=== PATIENT | male | born 1945 | race Caucasian/White ===

== ENCOUNTER 2019-03-18 09:23 | Inpatient (IN) | payer OTHER ==
[~2019-03-18] VITALS: Ht 154.9 cm; Wt 63.5 kg
--- NOTE | 2019-03-18 09:44 | NUR ---
PT BIB EMS PERSONNEL WITH ADULT SON FROM HOME,PT HAS TRACHE WITH NRB MASK ON O2 SAT ABOVE 89% AT THIS TIME.AAO,NAD.MONITORS ON.AWAITS er md evaluations/assessments,reevaluations.awake alert calm quiet nad.cooperative.
[2019-03-18 10:56] LABS: CALCIUM 9.1 mg/dL (8.5-10.1); CARBON DIOXIDE 28.4 mmol/L (21-32); CHLORIDE SERUM 107 mmol/L (98-107); CREATININE SERUM 2.2 mg/dL (0.7-1.3); GLUCOSE SERUM 126 mg/dL (74-106); POTASSIUM SERUM 5.4 mmol/L (3.5-5.1); SODIUM SERUM 146 mmol/L (136-145)
[2019-03-18 10:57] LABS: PLATELET COUNT 246 x10^3mcL (130-400)
[2019-03-18 10:59] LABS: BASOPHIL % 0 % (0-2); RED CELL DISTRIBUTION WIDTH 19.3 % (11.5-14.5)
--- NOTE | 2019-03-18 11:09 | NUR ---
RESTING ER # 05 HOB @ 45 DEGREES SR UP,MONITORS ON.BRITTNI [place].ADULT SON BEDSIDE.AWAITS TEST RESULTS,REEVALUATIONS.
[2019-03-18 11:10] LABS: ALBUMIN 2.9 g/dL (3.4-5.0); ALKALINE PHOSPHATASE 71 U/L (46-116); ALT/SGPT 160 U/L (16-63); AST/SGOT 292 U/L (15-37); BILIRUBIN TOTAL 0.66 mg/dL (0.20-1.00); TOTAL PROTEIN, SERUM 7.1 g/dL (6.4-8.2)
[2019-03-18 11:13] LABS: CK-MB 1.8 ng/mL (0-3.6)
--- NOTE | 2019-03-18 11:30 | NUR ---
PURPLE SEPSIS CHECKLIST INITIATED. PT HAS KNOWN INFECTION (CAME IN ON LEVAQUIN) PT MEETS SIRS CRITERIA (HR 96, RR 22 @ 0929) PT MEETS SEVERE SEPSIS (LACTIC ACID 3.8 REPORTED @ 1130) PT DOES NOT MEET SEPTIC SHOCK @ THIS TIME, LACTIC ACID <4 & SBP 92, MAP 66
--- NOTE | 2019-03-18 11:34 | NUR ---
PT O2 SAT IN THE MID 70S. NOTIFIED DR. GERMAN. DR. GERMAN REQUESTED FOR BREATHING TREATMENT. RT NOTIFED AND WILL GIVE BREATHING TREATMENT.
--- NOTE | 2019-03-18 11:40 | NUR ---
RAHEEM GEORGE AT BEDSIDE FOR REEVALUATIONS.BRITTNI [place].ADULT SON BEDSIDE.AWAITS REEVALUATIONS.MONITORS ON.
--- NOTE | 2019-03-18 11:50 | NUR ---
RAHEEM GEORGE AT BEDSIDE FOR ANOTHER REEVALUATIONS.BRITTNI [place].MONITORS ON.ADULT SON BEDSIDE.AWAITS REEVALUATIONS.PT TOLERATED PROCEDURES WITH NO INCIDENTS.RESP THERAPIST WITH PT.
--- NOTE | 2019-03-18 12:40 | NUR ---
BACK FROM CT, WAS ACCOMPANIED BY BOO MOREIRA.
--- NOTE | 2019-03-18 13:08 | NUR ---
PT TRIED BUT WASN'T ABLE TO VOID. PT REFUSED ATIVAN @ THIS TIME. CURRENT IV BAG RATE INCREASED TO 1000 CC/HR.
--- NOTE | 2019-03-18 13:19 | NUR ---
RESTING AAO,NAD.ADULT RELATIVES BEDSIDE.MONITORS ON.AWAITS REEVALUATIONS.
--- NOTE | 2019-03-18 13:50 | NUR ---
RESTING ER # 05 HOB @ [address] ARMOND,BRITTNI [place].adult kids bedside.awaits reevaluations.
--- NOTE | 2019-03-18 13:56 | NUR ---
per alexsandra peña v.o. pt given jello/juice assisted by adult son.
--- NOTE | 2019-03-18 15:35 | NUR ---
RESTING,AAO,NAD.VS SHOWN.PT TOLERATED PROCEDURES WITH no incisents.awaits reevaluations.pt spouse and 2 adult kids at bedside.
--- NOTE | 2019-03-18 16:42 | NUR ---
PT REPOSITIONED ASSISTED BY ADULT SON.PT TOLERATED PROCEDURES WITH NO INCIDENTS.BRITTNI [place].AWAITS BED ASSIGNMENT,REEVALUATIONS.
--- NOTE | 2019-03-18 17:00 | NUR ---
ADULT AT bedside helped cleaned surrounding area of trach of pt and also helped with repositioning pt.pt tolerated procedures with no incidents.buster anderson.awaits reevaluations.
--- NOTE | 2019-03-18 17:46 | NUR ---
PT ASSISTED BY ADULT SON TO [facility] [place] [facility].BRITTNI [place].AWAITS REEVALUATIONS.
--- NOTE | 2019-03-18 17:47 | NUR ---
PT TRIED TO USE BSC BUT NO STOO.L RESULTS.PT TOLERATED PROCEDURES WITH NO INCIDENTS.AWAITS REEVALUATIONS.MONITORS BACK ON.BRITTNI [place].ADULT SON BEDSIDE.
--- NOTE | 2019-03-18 17:53 | NUR ---
RAHEEM GEORGE AT BEDSIDE FOR UPDATE REEVALUATIONS ON [place] TRANSFER,STILL NO BEDS.ADULT KINSEY BEDSIDE.AWAITS REEVALUATIONS.BRITTNI [place].
--- NOTE | 2019-03-18 17:59 | NUR ---
PT AND ADIULT SON REQUESTED IF WE CAN GET REGULAR UPSTAIRS BED TO ER FOR PT TO USE.JAVI MOREIRATOOTH GRINDER IS AWARE.AWAITS REEVALUATIONS.
--- NOTE | 2019-03-18 18:34 | NUR ---
PT TRANSFERRED TO [facility] BED BY [facility].MONITORS ON.AAO,NAD.ADULT SON BEDSIDE.PT TOLERATED PROCEDURES WITH NO INCIDENTS.AWAITS REEVALUATIONS.
--- NOTE | 2019-03-18 19:16 | NUR ---
PT ENDORSED TO/ACCEPTED BY HUMAIRA MOREIRA.
--- NOTE | 2019-03-18 19:21 | NUR ---
PT IS LAYING IN BED. BREATHING IS E/U. PT WITH TRACH MASK ON 15 LPM, PT'S CURRENT O2 SATURATION 94%. PT DENIES ANY PAIN AT THIS TIME. NS INFUSING @ 150 ML/HR. SON AT BEDSIDE. BED IN LOW POSITION. CALL LIGHT IN REACH. WILL CONT TO MONITOR.
--- NOTE | 2019-03-18 20:10 | NUR ---
PT'S SON MADE AWARE PT'S CURRENT MEDICATION LIST IS NEEDED PER DR. GERMAN REQUEST. PER PT'S SON, HE WILL TRY TO OBTAIN THE LIST.
--- NOTE | 2019-03-18 21:51 | NUR ---
PT REQUESTING TO EAT. PER DR. LOPEZ, OK FOR PT TO EAT AT THIS TIME. PT PROVIDED WITH GHADA ACOSTA
--- NOTE | 2019-03-18 22:42 | NUR ---
PT IS RESTING IN BED. RISE AND FALL OF CHEST SYMMETRIC. NO S/S OF DISTRESS NOTED. WILL CONT TO MONITOR
--- NOTE | 2019-03-18 23:15 | NUR ---
PT'S AT BEDSIDE. MADE AWARE PT'S MEDICATION LIST IS STILL REQUIRED. PER THE , SHE WILL GO HOME TO THE [facility].
--- NOTE | 2019-03-19 00:45 | NUR ---
PT ASSISTED TO BSC. PT HAD A SMALL SOFT BROWN BM. PERICARE PROVIDED. PT ASSISTED BACK IN BED AND CONNECTED TO FULL MANAGER FAMILY
--- NOTE | 2019-03-19 02:15 | NUR ---
PT IS SLEEPING, EASILY AROUSABLE. BREATHING IS E/U. RISE AND FALL OF CHEST SYMMETRIC. NO S/S OF ACUTE DISTRESS NOTED. BED IN LOW POSITION. CALL LIGHT IN REACH. WILL CONT TO MONITOR
--- NOTE | 2019-03-19 03:30 | NUR ---
PT IS RESTING IN BED. RISE AND FALL OF CHEST SYMMETRIC. BREATHING IS E/U. NO S/S OF ACUTE DISTRESS NOTED. WILL CONT TO MONITOR
--- NOTE | 2019-03-19 04:15 | NUR ---
PT ASSISTED TO BSC. PT HAD A SMALL BROWN BM. PT ASSISTED BACK IN BED AND CONNECTED TO FULL ASSOCIATE BROKER. WILL CONT TO MONITOR
--- NOTE | 2019-03-19 05:32 | NUR ---
PT IS AWAKE/ALERT. DENIES ANY PAIN. BREATHING IS E/U. RISE AND FALL OF CHEST SYMMETRIC. NO S/S OF ACUTE DISTRESS NOTED. WILL CONT TO MONITOR.
--- NOTE | 2019-03-19 06:08 | NUR ---
ERYTHEMA NOTED TO SACRAL AREA WITH A SMALL ABRASION NOTED. PHOTO TAKEN AND PLACED IN CHART. OPTIFOAM PLACED. PT ASSISTED TO REPOSITION Q2H AND PRN FOR COMFORT. WILL CONT TO MONITOR.
--- NOTE | 2019-03-19 07:10 | NUR ---
REPORT GIVEN TO MOVING WORKER WENDY. ALL QUESTIONS/CONCERNS ADDRESSED AT THIS TIME. ENDORSING ALL CARE. PT IS AAOX4. BREATHING IS E/U ON RA. NO S/S OF ACUTE DISTRESS NOTED.
--- NOTE | 2019-03-19 07:18 | NUR ---
RECEIVED PT FROM HUMAIRA MOREIRA. PT AWAITING TRANSFER TO [place]. PT A/O X4, NSR ON TELE, VSS, PT HAS TRACH AND ON 15L, NO CURRENT REPORT OF SOB, BREATH SOUNDS DIMINISHED IN BLL. NO C/O PAIN. BOWEL MOVEMENT AT SHIFT CHANGE BROWN AND SEMI-SOLID. PT OK TO EAT PER DR. RUBI. BEDRAILS UP X2, REG DIET ORDERED FOR PT. ASKING ABOUT DR. GERMAN, RN WILL FOLLOW UP ON WHO IS MD TAKING OVER CARE AND REPORT BACK. BED IN LOWEST POSITION. PER REPORT PT IS DUE FOR NEXT ABX AT 1300 TODAY. WILL CONTINUE TO MONITOR AND ADJUST POC NEEDED.
--- NOTE | 2019-03-19 08:00 | NUR ---
FAMILY MADE AWARE [facility] HAS NO AVAILABLE BEDS AT THIS TIME. PT AND FAMILY ADVISED TO POSSIBLY CONSIDER BEING INPATIENT IN OUR HOSPITAL. PT AND AT THIS TIME PREFER TO WAIT FOR [facility] TO CALL BACK WITH AN AVAILABLE BED. DR RUBI AWARE. PRIMARY NURSE CARO ADVISED OF CURRENT BED STATUS
--- NOTE | 2019-03-19 08:30 | NUR ---
PT APPEARS TO BE SLEEPING, AT BEDSIDE. NO S/S OF DISTRESS, NO C/O SOB, IV @150ML/HR IS COMPLETED. PT POSITIONED FOR COMFORT, TOLERATED BREAKFAST TRAY WELL. CONTINUE TO AWAIT [facility] ACCEPTING PT PER PT'S REQUEST.
--- NOTE | 2019-03-19 09:31 | NUR ---
PT SLOWLY MOVES TO BEDSIDE COMMODE WITH ASSIST.
--- NOTE | 2019-03-19 09:40 | NUR ---
[facility] CALLED NO AVAILABLE BED AT THIS TIME. DR RUBI MADE AWARE PER [facility] INPATIENT CARE SHOULDN'T BE DELAYED IF WE CAN ADMIT WE SHOULD. PT AND PTS FAMILY ADVISED HOWEVER WANTED TO WAIT FOR DR GERMAN TO COME IN AT 10AM TO SPEAK TO HIM AGAIN.
--- NOTE | 2019-03-19 10:00 | NUR ---
DR. GERMAN AT BEDSIDE EXPLAINING THAT [facility] HAS NOT ACCEPTED PT OF YET. ALSO, THAT MD CAN ADMIT PT AND ONCE [facility] ACCEPTS HIM, HE CAN TRANSFER AT THAT TIME. PT (VIA TRACH VOICE BOX) AND VERBALIZED UNDERSTANDING THAT THEM "REQUESTING A TRANSFER" IS CONTINGENT ON BED AVAILABILITY AT [place]. AND PT ASKED MD GERMAN TO GIVE THEM 2 HRS TO DECIDE AND ATTEMPT TO CONTACT THEIR PCP. THEREFORE, AT 12PM PT WILL EITHER BE ADMITTED OR TRANSFERRED AT THAT TIME.
--- NOTE | 2019-03-19 10:05 | NUR ---
DR GERMAN AT PTS BEDSIDE DISCUSSING POC WITH PT AND HIS .
--- NOTE | 2019-03-19 10:06 | NUR ---
HYPOTENSION: PT BP DOWN 83/49, PT COMPLETED NS @ 150MLS FOR A TOTAL OF 1000MLS APPROX 1 HR AGO. TO WRITE ORDER TO RESTART AT SAME RATE.
--- NOTE | 2019-03-19 10:19 | NUR ---
RN HYPERBARIC JENNYFER AT BEDSIDE DISCUSSING PTS OPTIONS REGARDING ADMISSION AND [facility] BED AVAILABILITY AT THIS TIME.
--- NOTE | 2019-03-19 10:21 | NUR ---
PT AND PTS ASK THAT WE WAIT TILL 1200PM TODAY AND IF BY THAT TIME [facility] DOES NOT HAVE A BED AVAILABE FOR PT TO BE TRANSFERRED THEY WILL AGREE TO BE ADMITTED HERE AFTER ALL.
[2019-03-19] MEDS ORDERED: ROB1 PO (10:37)
[2019-03-19] MEDS ORDERED: NORCO1 TA2 PO (10:38)
[2019-03-19] MEDS ORDERED: CLINDAMYCI75 MG/5 ML (10:39)
[2019-03-19] MEDS ORDERED: CALCITRIOL0.25 MCG (10:40)
[2019-03-19] MEDS ORDERED: EMERGEN-C 500500 MG (10:41)
[2019-03-19] MEDS ORDERED: B12 (10:42)
[2019-03-19] MEDS ORDERED: SYNTHROID0.175 MG PO (10:44)
[2019-03-19] MEDS ORDERED: AVELOX400 MG (10:45)
[2019-03-19] MEDS ORDERED: LEVOFLOXACIN750 M1 (10:46)
[2019-03-19 11:11] LABS: PLATELET COUNT 168 x10^3mcL (130-400)
[2019-03-19 11:15] LABS: CALCIUM 7.1 mg/dL (8.5-10.1); CARBON DIOXIDE 28.9 mmol/L (21-32); CHLORIDE SERUM 110 mmol/L (98-107); CREATININE SERUM 1.5 mg/dL (0.7-1.3); GLUCOSE SERUM 91 mg/dL (74-106); POTASSIUM SERUM 4.2 mmol/L (3.5-5.1); SODIUM SERUM 146 mmol/L (136-145)
[2019-03-19 11:32] LABS: RED CELL DISTRIBUTION WIDTH 18.9 % (11.5-14.5)
[2019-03-19 11:33] LABS: BASOPHIL % 0 % (0-2)
--- NOTE | 2019-03-19 13:57 | NUR ---
RECEIVED REPORT FROM CARO IN ER
[2019-03-19 15:03] VITALS: BP 93/54
--- NOTE | 2019-03-19 15:10 | NUR ---
RECEIVED PT FROM ED VIA LOURDES. ORIENTED PT TO ROOM AND SURROUNDINGS. IV NOTED TO RFA PATENT AND INTACT. TELE 7 PLACED ON PT READING SR WITH PVC. INSTRUCTED PT ON THE USE OF CALL LIGHT FOR ASSISTANCE. ENDORSED PT TO PRIMARY NURSE NEO
[2019-03-19 15:40] VITALS: BP 93/54
[2019-03-19 16:16] VITALS: BP 111/53
--- NOTE | 2019-03-19 16:19 | NUR ---
WOUND CARE EVALUATION NOTE: REASON FOR EVALUATION: LOW ÁLVARO SCALE AND SACRALCOCCXY WOUND SKIN ASSESSMENT DONE WITH THIS 73 Y/O MALE PT ADMITTED TO [facility] [place] WITH INITIAL DX SOB AND PRESSURE ULCER INJURY STAGE 2. PAST MEDICAL HX: THYROID CA WITH METASTASIZED TO LIVER AND LUNGS. PT IS AWAKE. SKIN IS WARM AND DRY, BLE WITH DRY FLAKY SKIN, NO HAIR GROWTH, NO EDEMA. DORSAL PEDAL PULSES PRESENT AND NORMAL.PER ADMITTING RN, QUICK PHOTO TAKEN WITHOUT MEASUREMENT DUE TO PT. IS DESAT AND NEED TO REPOSITION QUICKLY. PLAN OF CARE DISCUSSED WITH PT. AND PT. UNABLE TO FULLY UNDERSTAND AT THIS TIME. NEED REINFORCEMENT. INTEGUMENTARY: -TRACH KIMI-STOMA SKIN DRY AND INTACT -MOISTURE ASSOCIATED DERMATITIS TO GROINS AREA REDNESS, SKIN INTACT. -INCONTINENT ASSOCIATED DERMATITIS TO BUTTOCKS -SACRALCOCCYX PRESSURE INJURY STAGE 2 WITH 3X2X0.1CM WOUND BED IS 100% RED GRANULATING TISSUE, MOIST, NO ODOR, NO UNDERMINING,KIMI WOUND SKIN INTACT, SURROUNDING REDNESS/PURPLE COLOR INDICATED FURTHER DAMAGE. RECOMMENDATIONS: -FREQUENT KIMI CARE, KEEP GROINS SKIN DRY AND CLEAN AT ALL TIMES -CLEANSE SACRALCOCCYX AND BUTTOCKS WITH SOAP AND WATER, PAR DRY APPLY Z GUARD AND OPTIFOAM QD AND PRN IF SOILING -OFFLOAD BILATERAL HEELS BY PLACING PILLOWS UNDER CALVES UNLESS OTHERWISE CONTRAINDICATED -PRESSURE REDISTRIBUTION SURFACE THERAPY -TURN AND REPOSITION Q2H, OFFLOAD BUTTOCKS AND SACRALCOCCYX -CONTINUE TO FOLLOW RD RECOMMENDATIONS PLEASE CONTACT WOUND CARE NURSE FOR ANY QUESTION AND CHANGE OF WOUND CONDITION.
--- NOTE | 2019-03-19 16:43 | NUR ---
PT BACK IN BED. US OF BLE COMPLETE. PT USED BEDSIDE COMMODE. TOLERATED WELL. RESPIRATORY AT BEDSIDE, PT SUCTIONED. NO ACUTE RESP DISTRESS NOTED ON 10L BLOWBY. GIVEN PO MEDS. TOLERATED WELL. IV TO RFA FLUSHED WELL. IV FLUIDS INFUSING ORDERED. WILL CONTINUE TO MONITOR. CALL LIGHT IN REACH. BED IN LOWEST POSITION.
--- NOTE | 2019-03-19 17:34 | NUR ---
PT SITTING UP IN BED. US AGRONOMY LOCATION MANAGER AT BEDSIDE. HEPARIN PROTOCOL INITATED. VERIFIED WITH JOSE DE JESUS MOREIRA. LOADING DOSE OF 5100 UNITS OF HEPARIN GIVEN IVP. HEPARIN DRIP STARTED AND INFUSING AT 1200 UNITS/HR. IV PATENT AND INFUSING. NO REDNESS OR SWELLING NOTED. ORDERED STAT PTT FOR 2300 PER HEPARIN PROTOCOL. WILL CONTINUE TO MONITOR. CALL LIGHT IN REACH. BED IN LOWEST POSITION.
--- NOTE | 2019-03-19 19:20 | NUR ---
PT RECEIVED A/O X4, ABLE TO MAKE NEEDS KNOWN. TELE #7, PT DENIES ANY CP/PRESSURE. BREATHING IS EVEN AND UNLABORED ON 10L BLOWBY VIA TRACHEOSTOMY STOMA, NO RESP DISTRESS NOTED. PT USES VOICE BOX TO TALK. ABD SOFT AND FLAT, DENIES N/V. VOIDS FREELY, URINAL AT BEDSIDE. GENERALIZED WEAKNESS, ON AIR MATTRESS. OPEN WOUND NOTED TO COCCYX WITH OPTIFOAM IN PLACE, CDI. PT DENIES HAVING ANY PAIN AT THIS TIME. HEPARIN DRIP INFUSING @ 1200 UNITS/HR TO RFA, SITE WNL. NEXT PTT DRAW ON 03/19/19 AT 2300. SPOUSE AT BEDSIDE. NO ACUTE DISTRESS NOTED. BED IN LOWEST SETTING, SIDE RAILS UP X2, BED ALARM ON, CALL LIGHT WITHIN REACH. WILL CONT TO MONITOR.
[2019-03-19 21:37] VITALS: Ht 154.9 cm; Wt 63.5 kg
[2019-03-19 21:50] VITALS: BP 79/55
[2019-03-19 23:44] LABS: microscopic required? NO
[2019-03-19 23:50] LABS: UA SPECIFIC GRAVITY 1.025 (1.005-1.035); urine erythrocyte NEGATIVE (NEGATIVE)
--- NOTE | 2019-03-20 00:07 | NUR ---
PTT-67.7, HEPARIN DRIP INFUSION DECREASED BY 100 UNITS/HR. HEPARIN DRIP INFUSING WELL @ 1100 UNITS/HOUR. NEXT PTT DRAW ORDERED FOR 03/20/19 @ 0400. PT IN NO ACUTE DISTRESS. SPOUSE AT BEDSIDE, CALL LIGHT WITHIN REACH. WILL CONT TO MONITOR.
--- NOTE | 2019-03-20 04:53 | NUR ---
PT REQUESTING SUCTIONING. RT MADE AWARE AND AT BEDSIDE. NO ACUTE DISTRESS NOTED. WILL CONT TO MONITOR.
[2019-03-20 04:54] LABS: PLATELET COUNT 155 x10^3mcL (130-400)
[2019-03-20 05:12] LABS: CALCIUM 6.4 mg/dL (8.5-10.1); CARBON DIOXIDE 30.4 mmol/L (21-32); CHLORIDE SERUM 111 mmol/L (98-107); GLUCOSE SERUM 96 mg/dL (74-106); POTASSIUM SERUM 3.8 mmol/L (3.5-5.1); SODIUM SERUM 148 mmol/L (136-145)
--- NOTE | 2019-03-20 05:12 | NUR ---
PTT-50.8, NO CHANGES MADE TO HEPARIN INFUSION. HEPARIN DRIP INFUSING WELL AT 1100 UNITS/HR. NEXT PTT DRAW ORDERED FOR 03/20/19 AT 0900. PT IN NO ACUTE DISTRESS. WILL CONT TO MONITOR.
[2019-03-20 05:13] LABS: BASOPHIL % 0 % (0-2); RED CELL DISTRIBUTION WIDTH 19.2 % (11.5-14.5)
[2019-03-20 05:46] VITALS: BP 93/56
--- NOTE | 2019-03-20 06:08 | NUR ---
PT SLEPT WELL THROUGHOUT THE EVENING. BREATHING IS EVEN AND UNLABORED ON 10L BLOWBY VIA TRACH STOMA, NO RESP DISTRESS NOTED. PT DENIES HAVING ANY PAIN AT THIS TIME. NO ACUTE CHANGES ENCOUNTERED DURING SHIFT. ALL NEEDS MET AND ANTICIPATED. PT COMPLIANT WITH NURING CARE. HEPARIN DRIP INFUSING WELL @ 1100 UNITS/HR, NEXT PTT ON 03/20/19 AT 0900. SPOUSE AT BEDSIDE. CALL LIGHT WITHIN REACH. WILL ENDORSE CARE TO AM NURSE.
--- NOTE | 2019-03-20 07:37 | NUR ---
PT IN NO ACUTE DISTRESS. CONTINUITY OF CARE ENDORSED TO LINN MOREIRA. ALL QUESTIONS AND CONCERNS ADDRESSED.
--- NOTE | 2019-03-20 08:00 | NUR ---
PATIENT RECEIVED ALERT AND ORIETNE DTIMES FOUR. ULICES INSISTS ON TAKING HIS CALCIUM AT BEDSIDE AND DID NOT WANT TO TAKE THE PRESCRIBED MEDIACTION FOR THE THYROID ORDERED. PATIENT TOOK 6 TABLETS OF HIS HOME MEDICATION HE HAD A BEDSIDE. PATIENT HAD A LOSE STOOL THIS AM AND HAD TOLERATE OOB TO THE COMODE. PATEINT HAS DIMINISHED BREATH SOUNDS WITH FINE RALES AND NOTED THE PATIENT WITH TRACH AND WITH VOICE BOX IS HOW HE COMUNICATES WITH STAFF AND FAMILY. PATIENT INDICATED HE HAS BEEN TAKING CALCIUM DAILY AND CAN NOT MISS THIS MEDICATION. HE HAS HAD ALL MEDICATION ADVISE TO HIM AND READ TO HIM THE INDICATION AND RATIONAL FOR EACH FROM THE [facility] SITE. PATIENT HAS BEEN WITH SOME SLIGHT TRACE EDEMA TO THE LOWER EXTREMTIES VITALS ARE AT 98.5, 85, 20, 93/56, 98% WITH SUCTIONING TO THE STOMA DONE BY RESPIRATORY THERAPY NEEDED UPPER PULSES STRONG AND MODERATE TO THE LOWER. PATIENT HAD BEEN WEAK AND HE HAS BEEN ON BEDREST BUT HAS BEEN STRONGER AND THE WOULD LIKE TO SEE HIM UP WITH PHYSICAL THERAPY SHE HAS A HARD TIME CARING FOR HIM AT HOME. HE NOW REFUSED TO TAKE HIS OTHER MEDICATIONS HE NEED STO WAIT AN HOUR HE STATES FOR THESE MEDICATION POST MELANIE CALCIUM. WILL RETURN INDICATED.
[2019-03-20 09:26] VITALS: BP 86/48
--- NOTE | 2019-03-20 10:30 | NUR ---
RETURNED BUT PATIENT MOTIONED STAFF TO COME BACK FOR HIS MEDICATION TO BE GIVEN AGAIN. PATIENT HAS BEEN SUCTIONED PER PATIETN REQUEST AND IS RESTING AT THIS TIME. NO INDICASTION OF ACUTE RESPIRATORY DISTRESS.
--- NOTE | 2019-03-20 11:30 | NUR ---
PATIENT FINALLY TOOK THE MEDICATIONS FROM THE AM. SINCE LATE WILL NEEED TO ADJUST THE FUTURE MEDICATIONS ACCORDINGLY. PATIENT HAS INDICATED HOW UNHAPPY HE IS NOT BEING SENT TO HIS PREFERED HOSPITAL. STAFF VALIDATES THIS AND REASSURES THE PATIENT AND FAMILY THAT [facility] IS WTIHOUT A BED BUT HAS BEEN IN CONTACT WITH STAFF HERE.
[2019-03-20] MEDS ORDERED: LEVAQUIN750 MG IV (12:53)
[2019-03-20 13:08] VITALS: BP 98/55
--- NOTE | 2019-03-20 15:00 | NUR ---
PATIENT GIVEN HIS LEVAQUIN ORDERED AND THE PTT WILL BE AT 1600. PATIENT IS A BIT BELIGERANT HE WANTS TO BE TAKEN TO [facility]. EXPLAINED SEVERAL TIMES THAT THERE WAS NO BED AND [facility] IS AWARE AND HAS CALLED TO CHECK UP ON HIS STATUS. FAMILY AT BEDSIDE AND ANXIOUS TO KNOW ABOUT HIS STATUS WELL. CONTINUED ON HEPARIN ORDERED AND PATIENT HAS BEEN ON FLUIDS WELL. RESPIRATORY HAS BEEN IN SEVERAL TIMES FOR TREATMENTS AND SUCTIONING. PATIENT HAS A WET SOUNDING COUGH. WILL CONTINUE TO MONITOR INDICATED.
--- NOTE | 2019-03-20 15:48 | NUR ---
FAMILY WANTS A MONITOR FOR ALARMING THE FAMILY WHEN PATIENT IS LOW ON HIS SATURATIONS. SPOKE WITH JACK AND SHE IS AWARE BUT PATIENT IS TO BE TRANSFER AT SOME POINT AND THIS WILL BE ARRANGED MOST LIKELY AT [place]. BUT IF PATIENT IS STILL HERE AT TIME OF DISCHARGE JACK WILL TAKE CARE OF ANY EQUIPMENT NEEDS AT THAT TIME.
[2019-03-20 17:06] VITALS: BP 103/50
--- NOTE | 2019-03-20 18:25 | NUR ---
PATIENT TOOK MEDICATION THIS TIME WHEN BROUGHT WITHOUT FURTHER INCIDENT. PATIENT HAD BEEN ADJUSTED HIS HEPARIN DUE TO THE BLOOD PTT WAS AT 66 AND NEEDED REDUCTION OF 1. ORDERED NEXT PTT INDICATED AT 1030 AND WILL ADVISE THE SHIFT COMING ON. PATIENT HAS BEEN NOTED TO WANT TO LEAVE AND WILL ENDORSE THIS TOO TO THE DELIVERY CONSULTANT. NO ORDERS FOR TRANSFER NO BED IS AVAILABLE YET. PER JACK ZHANG WILL CALL WITH BED AVAILABILTY.
--- NOTE | 2019-03-20 19:35 | NUR ---
RECEIVED PT RESTING IN BED, NO ACUTE DISTRESS NOTED. AOX4, DENIES JOHANSEN/DIZZINESS. TELE # 7, SR W/ PVC'S. DENIES CP. PT ADMITTED WITH ELEVATED TROPONINS, ELEVATED BUN/CR. PT WITH HX OF METASTATIC CA. PULSES PALPABLE BILAT, DENIES NUMBNESS/ TINGLING IN FEET. PT WITH STOMA TO MID NECK, WITH TRACH COLLAR OXYGEN MASK IN PLACE, 8LPM. PT HAS LARGE AMOUNTS OF SECRETIONS, RT CALLED FOR SUCTIONING PER REQUEST. SUPPLIES AT BEDSIDE FOR PRN SUCTIONING. PT VERBALIZES THAT HE WILL USE CALL LIGHT WHEN SUCTIONING IS NEEDED. CT ANGIO DEMONSTRATING SM PULMONARY EMBOLUS, ON HEPARIN GTT CURRENTLY RUNNING AT 1100ML/HR. NEXT PTT AT 2030. PT HAD ONE LOOSE STOOL UPON CHANGE OF SHIFT IN BSC, WILL MONITOR FOR CONTINUOUS LOOSE STOOL. PT DENIES ABD PAIN. PT VOIDS IN URINAL, DENIES DYSURIA. PT REPORTS SOME BURNING WHEN NOT TAKING HIS FLOMAX. UA CX PENDING. GENERALIZED WEAKNESS ON AIR MATTERSS. PT WITH STAGE 2 PRESSURE WOUND TO COCCYX, TURN 2QHR FOR PRESSURE RELIEF WELL Z-GUARD AND OPITFORM IN PLACE. PT VERBALIZES THE NEED FOR REPOSITIONING, AT BEDSIDE ASSISTING WITH TURNING. IV SITE TO THE RFA PATENT, NS @ 100ML/HR. PT ON LEVAQUIN. ALL COMFORT AND SAFETY MEASURES PROVIDED FOR, CALL LIGHT WITHIN REACH, BED IN LOWEST POSITION, WILL CONTINUE TO MONITOR.
[2019-03-20 20:34] VITALS: BP 85/54
--- NOTE | 2019-03-20 21:15 | NUR ---
RECEIVED A CALL FROM LAB, LATEST PTT= 52.6, PT ON HEPARIN GTT. PER HEPARIN DRIP PROTOCOL, NO CHANGE REQUIRED AT THIS TIME. WILL ORDER NEXT PTT AT 0115 03/21/19. UPDATED PT ON PLAN OF CARE, AGREEABLE AT THIS TIME. NO ACUTE DISTRESS NOTED, AT BEDSIDE.
--- NOTE | 2019-03-21 01:29 | NUR ---
RECEIVED A CALL FROM LAB, LATEST PTT= 50.4. THIS IS THE 2ND THERAPEUTIC PTT, WILL REORDER NEXT PTT DAILY QAM PER PROTOCOL. NEXT PTT ORDERED FOR 03/22/19 @ 0500. PT UPDATED WITH PLAN OF CARE, REMAINING AT BEDSIDE. ALL COMFORT AND SAFETY MEASURES PROVIDED FOR, CALL LIGHT WITHIN REACH, BED IN LOWEST POSITION, WILL CONTINUE TO MONITOR.
--- NOTE | 2019-03-21 05:05 | NUR ---
PT RESTED IN INTERVALS DURING SHIFT, NO ACUTE CHANGES OCCURRING OVERNIGHT. PT REMAINS ON HEPARIN GTT INFUSING AT 1100 UNITS/HR, PT HAS BEEN THERAPEUTIC X2, NEXT PTT ORDERED FOR 03/22/19 @ 0500. WILL ENDORSE TO DAYSHIFT. PT REMAINS WITH OXYGEN VIA TRACH COLLAR, 8LPM. PT DENIES SOB. PT CONTINUED WITH NS @ 100ML/HR. NO REDNESS, SWELLING OR PAIN NOTED TO RFA. NO MORE EPISODES OF DIARRHEA DURING SHIFT. ALL COMFORT AND SAFETY MEASURES PROVIDED FOR, CALL LIGHT WITHIN REACH, BED IN LOWEST POSITION, WILL CONTINUE TO MONITOR.
[2019-03-21 06:08] VITALS: BP 90/51
[2019-03-21 06:25] LABS: CALCIUM 7.6 mg/dL (8.5-10.1); CARBON DIOXIDE 30.4 mmol/L (21-32); CHLORIDE SERUM 112 mmol/L (98-107); GLUCOSE SERUM 94 mg/dL (74-106); POTASSIUM SERUM 3.7 mmol/L (3.5-5.1); SODIUM SERUM 146 mmol/L (136-145)
--- NOTE | 2019-03-21 06:30 | NUR ---
RT AT BEDSIDE TO SUCTION PT PER REQUEST. PT HAD LARGE AMOUNT OF VIRK SECRETIONS, PT TOLERATED WELL. O2 SAT= 98% ON 8LPM, DENIES SOB. PT DENIES PAIN, ALL COMFORT AND SAFETY MEASURES PROVIDED FOR, CALL LIGHT WITHIN REACH, BED IN LOWEST POSITION, WILL CONTINUE TO MONITOR.
[2019-03-21 06:53] LABS: BASOPHIL % 0.1 % (0-2); PLATELET COUNT 153 x10^3mcL (130-400)
[2019-03-21 06:59] LABS: RED CELL DISTRIBUTION WIDTH 19.9 % (11.5-14.5)
[2019-03-21 07:01] LABS: rbc morphology (normal/abnorm) ABNORMAL (NORMAL)
--- NOTE | 2019-03-21 07:16 | NUR ---
ENDORSED ALL CARE TO DAYSHIFT NURSE, NO ACUTE DISTRESS NOTED. ALL QUESTIONS AND CONCERNS ADDRESSED, CALL LIGHT WITHIN REACH, BED IN LOWEST POSITION, WILL CONTINUE TO MONITOR.
--- NOTE | 2019-03-21 08:00 | NUR ---
RECEIVED PATIENT ALERT AND ORIENTED TIMES FOUR. STATES HE FEELS MUCH BETTER TODAY. HE DID TAKE ALL HIS MEDICATIONS TODAY AND WANTS TO HAVE THE CALCIUM FORM HOME TO TAKE AN HOUR OR SO AFTER BREAKFAST AND THE PRESENT ORAL MEDICATIONS. HE HAS DIMINISHED BREATH SOUNDS BU NO RALES OR WHEEZING HEARD. PATIENT HAS ACTIVE BOWEL SOUND AND TOLERATE THE BREAKFAST OFFERED. HE DENIES PAIN AT THIS TIME. SEEN BY RT AND SPENT THE NIGHT AND HE SEEMS MUCH MORE AGREEABLE TODAY IN COMPARISON TO YESTERDAYS ANXIETY AND DISTRUST. PATIENT HAS BEEN USING THE BEDSIDE COMODE AND STOOL HAS BEEN LOOSE AND HELD THE COLACE INDICATED. PATIENT HAS STOPPED BEING ANXIOUS ABOUT HIS TRANSFER TO [place] AT THIS POINT. NO BED HAS BEEN AVAILABLE YET. WILL CONTINUE TO MONITOR.
--- NOTE | 2019-03-21 08:40 | NUR ---
HHN TX GIVEN TO PT INLINE VIA TRACH COLLAR. PT IN NAD. PT ON 8LPM TRACH COLLAR WITH AN SPO2 OF 99%. PT TITRATED DOWN TO 5LPM TRACH COLLAR. PT DID NOT WANT SUCTIONED AT THIS TIME. HE WAS ADVISED TO CALL FOR SUCTIONING OR IF SOB.
[2019-03-21 09:02] VITALS: BP 88/53
--- NOTE | 2019-03-21 10:20 | NUR ---
RESTING QUIETLY AT THIS TIME. NO INDICATION OF RESPIRATORY DISTRESS.
--- NOTE | 2019-03-21 12:05 | NUR ---
CALLED THE WALLBOARD WORKER AND SAVED THE TISSUE PATIENT STATE SHE COUGHED UP AND WALLBOARD WORKER ADVISED WILL NOTIFY THE PULMONARY OF RECENT FINDINGS. WILL AWAIT FURTHER ORDERS. PATIENT TOOK HIS CALCIUM FROM HOME HE HAD AT BEDSIDE. WILL NOTIFY THE WALLBOARD WORKER OF THIS WELL.
[2019-03-21 12:27] VITALS: BP 92/58
--- NOTE | 2019-03-21 16:00 | NUR ---
NOTED TWO MORE OF THE TISSUE PIECES WAS COUGHED OUT OF THE TACH. NO BLEEDING NOTED. PATIENT DENIES THE NEED FOR SUCTIONING AT THIS TIME. WILL CONTINUE TO [place] FOR ANY SIGNS OF RESPIRATORY DISTRESS.
--- NOTE | 2019-03-21 16:46 | NUR ---
CALLD PRODUCT SAFETY ENGINEER FOR ORDERS FOR K PAD. APPLIED K PAD TO PATIENT FOR COMPLAINTS OF PAIN TO THE BACK.
[2019-03-21 17:11] VITALS: BP 96/59
--- NOTE | 2019-03-21 18:32 | NUR ---
PATIENT HAS BEEN TOLERATING THE DIET AND FLUIDS. HE HAS COUGHED UP MORE PIECES OF TISSUE AND ADVISED THE CHIEF CLIENT OFFICER AGAIN AND SHE STATES SHE WILL LET THE PULMONARY DOCTOR KNOW. PATIENT COLLECTING IN SPECIMEN CUP.
--- NOTE | 2019-03-21 18:34 | NUR ---
TRACH AREA INTACT AND THE OPSITE INTACT TO THE CO[place] AREA. WARMED BLANKET APPLIED TO THE LOWER BACK AND HE STATES HE IS FINE WITH THIS FOR NOW. AWAITING THE K PAD TO WARM TO THE RIGHT TEMP AND HE WAS GIVEN [facility] BLANKET FOR TEMPORARY RELIEF BUT HE STATES HE IS FINE WITH THIS FOR NOW. JUST NOW RECIEVED CALL FROM [facility] [employer] STAFF AND WANTS TO SPEAK WITH [facility] PAYMENT PROCESSOR ABOUT TRANSFER. PATIENT HAS INDICATED HE FEELS BETTER THOUGH NOW AND ADVISED THE TRANSPORT STAFF OF THIS. AWAITING ANY ORDERS.
--- NOTE | 2019-03-21 19:35 | NUR ---
RECEIVED PT RESTING IN BED, NO ACUTE DISTRESS NOTED. AOX4, DENIES JOHANSEN/DIZZINESS. TELE # [phone], SR 87. DENIES CP. PT ADMITTED WITH ELEVATED TROPONINS AND PULMONARY EMBOLI, STARTED ON HEPARIN GTT CURRENTLY RUNNING AT 1100 UNITS/HR. PT THERAPEUTIC X2 AND NEXT PTT 03/22/19 @ 0115. PT WITH STOMA TO MID NECK, WITH TRACH COLLAR OXYGEN MASK IN PLACE, 5LPM. PT HAS MOD AMOUNT OF SECRETIONS, RT CALLED FOR SUCTIONING PER REQUEST. SUPPLIES AT BEDSIDE FOR PRN SUCTIONING. PT VERBALIZES THAT HE WILL USE CALL LIGHT WHEN SUCTIONING IS NEEDED. REMAINING AT BEDSIDE. PT DENIES LOOSE STOOL TODAY. PT DENIES ABD PAIN. PT VOIDS IN URINAL, DENIES DYSURIA. PT UA CX (+) YEAST, ONE DOSE OF DIFLUCAN GIVEN YESTERDYA. GENERALIZED WEAKNESS ON AIR MATTERSS. PT WITH STAGE 2 PRESSURE WOUND TO COCCYX, TURN 2QHR FOR PRESSURE RELIEF WELL Z-GUARD AND OPITFORM IN PLACE. PT VERBALIZES THE NEED FOR REPOSITIONING, AT BEDSIDE ASSISTING WITH TURNING. IV SITE TO THE RFA PATENT, NS @ 100ML/HR. PT ON LEVAQUIN. ALL COMFORT AND SAFETY MEASURES PROVIDED FOR, CALL LIGHT WITHIN REACH, BED IN LOWEST POSITION, WILL CONTINUE TO MONITOR.
[2019-03-21 22:55] VITALS: BP 95/56
--- NOTE | 2019-03-22 03:03 | NUR ---
ASSISTED PT TO [facility]SC FROM , PT REPORTS STOOL SOFTENER IS WORKING. PT HAS SMALL BROWN FORMED STOOL. OLD OPTIFORM REMOVED, AND NEW ONE APPLIED. PT TOLERATED WELL. PT RETURNED BACK TO BED W/O ISSUE, CALL LIGHT WITHIN REACH, BED IN LOWEST POSITION, WILL CONTINUE TO MONITOR.
[2019-03-22 04:58] VITALS: BP 99/56
--- NOTE | 2019-03-22 05:10 | NUR ---
PT RESTED IN INTERVALS DURING SHIFT, NO ACUTE CHANGES OCCURRING OVERNIGHT. PT REMAINS ON 5L VIA TRACH COLLAR. PT DENIES SOB DURING SHIFT. PT WAS SUCTIONED PRN WITH MODERATE SECRETIONS. PT REMAINS ON HEPARIN GTT 1100 UNITS/HR, PENDING NEXT PTT AT 0500. NEW IV TO THE RFA REMAINS PATENT, NS @ 100ML/HR. NO REDNESS, SWELLING OR PAIN NOTED. PT DENIES N/V/D DURING SHIFT. ONE MEDIUM FORMED SOFT BM IN BSC. PT OPTIFORM DSG TO COCCYX CHANGED. CDI. HEELS FLOATED ON PILLOW. ALL COMFORT AND SAFETY MEASURES PROVIDED FOR, CALL LIGHT WITHIN REACH, BED IN LOWEST POSITION, WILL CONTINUE TO MONITOR.
[2019-03-22 06:31] LABS: CALCIUM 6.9 mg/dL (8.5-10.1); CARBON DIOXIDE 29.9 mmol/L (21-32); CHLORIDE SERUM 110 mmol/L (98-107); CREATININE SERUM 0.8 mg/dL (0.7-1.3); GLUCOSE SERUM 87 mg/dL (74-106); POTASSIUM SERUM 3.7 mmol/L (3.5-5.1); SODIUM SERUM 145 mmol/L (136-145)
[2019-03-22 06:46] LABS: BASOPHIL % 0.2 % (0-2); PLATELET COUNT 148 x10^3mcL (130-400)
[2019-03-22 07:06] LABS: RED CELL DISTRIBUTION WIDTH 19.8 % (11.5-14.5)
--- NOTE | 2019-03-22 07:35 | NUR ---
ALL CARE ENDORSED TO DAYSHIFT NURSE, NO ACUTE DISTRESS NOTED. ALL COMFORT AND SAFETY MEASURES PROVIDED FOR, CALL LIGHT WITHIN REACH, BED IN LOWEST POSITION.
--- NOTE | 2019-03-22 07:37 | NUR ---
ALL CARE ENDORSED TO DAYSHIFT NURSE, NO ACUTE DISTRESS NOTED. ALL COMFORT AND SAFETY MEASURES PROVIDED FOR, CALL LIGHT WITHIN REACH, BED IN LOWEST POSITION.
--- NOTE | 2019-03-22 07:45 | NUR ---
IV INFILTRATED TO RFA AND IV D/C'D. NEW IV INSERTION TO LFA W/ 22G NEEDLE. GOOD BLOOD RETURN. IVF AND HEPARIN DRIP RESUMED.
--- NOTE | 2019-03-22 08:00 | NUR ---
SHIFT ASSESSMENT DONE. PATIENT A/A/OX3. TRACHEOSMOTY, O2 SAT 97% ON O2 4.5L/MIN VIA TRACH COLLAR. BREATHING SOUND DIMINISHED AMMON BASES. TELE#7; SR; HR = 95. DENIED CHEST PAIN. SKEAKING WITH AAC DEVICE. ON HEPARIN DRIP 1100 UNITS/HR WITH NS 100CC/HR TO LFA. TOLERTED REGULAR DIET BREAKFAST. GENERAL WEAKNSS. ABLE TO SELF REPOSITION. ON AIR MATTRESS. PRESSURE ULCER TO COCCYX AREA W/ OPTIFOAM DRSG IN PLACE AND C/D/I. DENIED PAIN. CALL LIGHT IN REACH. AT BED SIDE.
--- NOTE | 2019-03-22 08:25 | NUR ---
PTT = 39.2; HEPARIN BOLUS 2500 UNITS IVP AND INCREASED DOSE TO 1200 UNITS PER PROTOCOL. NET PTT AT 1230.
[2019-03-22 09:18] VITALS: BP 94/57
[2019-03-22 12:43] VITALS: BP 110/66
--- NOTE | 2019-03-22 13:00 | NUR ---
PTT RESULT = 61.9; WITHIN THERAPEUTIC RANGE, DOSE NOT CHANGE. NEXT PTT SCHEDUALED ON 1699.
--- NOTE | 2019-03-22 13:20 | NUR ---
LEVAQUIN IS NOT COMPATABLE TO HEPARIN. SECOND IV INSERTED TO LFA W/ 22G NEEDLE FOR LEVAQUIN. BOTH IV PATNET. SITES CLEAN.
--- NOTE | 2019-03-22 14:45 | NUR ---
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 Current intake of regular diet is meeting >75% estimated needs. Ht: 61" (155 cm) Wt: 140# (63.5 kg) BMI: 26.5 (Acceptable considering advanced age) IBW: 112# %IBW: 124% UBW: 138-140# Age: 73 y/o elderly male Food Allergies: NKFA Intolerances: Milk and milk containing products Skin: Stg II P/U to coccyx Robert: 14 Edema: Trace to LLE GI: Last BM x 2 (03/22) Per H&P, pt. admitted with SOB and ALOC. No reports of GI distress, loss of appetite, or history of weight loss per provider notes. Pt. endorses fair appetite with good tolerance to diet order. Offered pt. oral supplement, however, pt. states that he has lactose intolerance and is unable to tolerate supplements such as Ensure Enlive. No food preferences provided at this time; will update as requested to encourage PO intake. T: Appears underweight/malnourished Problem with: No c/o N/V/D/C Problems with: Chewing: N Swallowing: N Current appetite: Good to fair Recent wt change: None %wt change: N/A Vitamin/Supplement use: Probiotics, Vit C, B12 Special diet at home: Regular Physical activity: Unable d/t chronic medical conditions Education: Diet education provided on the importance of consuming high protein, high kcal foods for wound healing support. Recommended family to have pt. take a multivitamin for P/U. NCM handouts "Pressure Ulcer Nutrition Therapy" were provided during visit. Pt. and family at bedside verbalized understanding. Estimated Nutritional Needs Based on actual body weight 63.5 kg: Energy: 2697-1200 kcal/d (30-32 kcal/kg-P/U wound healing) Protein: 76-89 g/d (1.2-1.4 g/kg)-wound healing preservation of lean body mass Fluid: 8294-3571 ml/d (1 ml/kcal-fluid balance) or per doctor Nutrition Diagnosis 1. Increased nutrient needs r/t altered skin integrity AEB presence of Stg II P/U to coccyx region. Intervention 1. Continue regular diet as ordered and as tolerated. 2. Recommendation to add MVI QD for wound healing support. Monitor/Evaluate Goal: PO intake at least 75% of estimated needs Monitor: PO intake, Labs, GI function, diet tolerance F/U in 2-3 days as high risk (03/24-03/25)
--- NOTE | 2019-03-22 14:49 | NUR ---
Intervention 1. Continue regular diet as ordered and as tolerated. 2. Recommendation to add MVI QD for wound healing support. 3. Update food prefrences as requested to encourage PO intake
--- NOTE | 2019-03-22 17:30 | NUR ---
PTT = 55.7; W/IN THERAPEUTIC RANGE X2. HEPARINE DOSE NO CHANGE AT 1200 UNITS/HR.
[2019-03-22 17:39] VITALS: BP 99/55
[2019-03-22 18:10] VITALS: BP 99/55
--- NOTE | 2019-03-22 19:35 | NUR ---
RECEIVED PT RESTING IN BED, NO ACUTE DISTRESS NOTED. AOX4, DENIES JOHANSEN/DIZZINESS. TELE # 7, SR W/ PVC'S 93. DENIES CP. PT ADMITTED WITH ELEVATED TROPONINS AND PULMONARY EMBOLI, STARTED ON HEPARIN GTT CURRENTLY RUNNING AT 1200 UNITS/HR. PT THERAPEUTIC X2 AND NEXT PTT 03/23/19 @ 0500. PT WITH STOMA TO MID NECK, WITH TRACH COLLAR OXYGEN MASK IN PLACE, 4LPM. PT HAS VERY LITTLE SECRETIONS NOTED. DENIES THE NEED FOR SUCTIONING AT THIS TIME. SUPPLIES AT BEDSIDE FOR PRN SUCTIONING. PT VERBALIZES THAT HE WILL USE CALL LIGHT WHEN SUCTIONING IS NEEDED. PT HAD LARGE BM DURING DAYSHIFT. PT DENIES ABD PAIN. PT VOIDS IN URINAL, DENIES DYSURIA. PT UA CX (+) YEAST, ONE DOSE OF DIFLUCAN GIVEN. GENERALIZED WEAKNESS ON AIR MATTERSS. PT WITH STAGE 2 PRESSURE WOUND TO COCCYX, TURN 2QHR FOR PRESSURE RELIEF WELL Z-GUARD AND OPITFORM IN PLACE. PT VERBALIZES THE NEED FOR REPOSITIONING, IV SITE TO THE LFA X2 PATENT, NS @ 100ML/HR. PT ON LEVAQUIN. ALL COMFORT AND SAFETY MEASURES PROVIDED FOR, CALL LIGHT WITHIN REACH, BED IN LOWEST POSITION, WILL CONTINUE TO MONITOR.
[2019-03-22 20:19] VITALS: BP 101/64
--- NOTE | 2019-03-23 00:10 | NUR ---
PT SITTING UP IN BED WATCHING TV, STATES HAVING SOME TROUBLE FALLING ASLEEP. INQUIRED IF PT WOULD LIKE A SLEEPING AID, PT REFUSE. ALL COMFORT AND SAFETY MEASURES PROVIDED FOR, CALL LIGHT WITHIN REACH, BED IN LOWEST POSITION, WILL CONTINUE TO MONITOR.
--- NOTE | 2019-03-23 02:00 | NUR ---
PT SEEN RESTING IN BED WITH TV OFF, RESP EVEN AND UNLABORED ON 4L TRACH COLLAR. BOTH IV'S TO THE LFA REMAIN PATENT, HEPARIN INFUSING AT 1200 UNITS/HR. NO REDNESS, SWELLING OR PAIN NOTED. BED IN LOWEST POSITION, CALL LIGHT WITHIN REACH, WILL CONTINUE TO MONITOR.
[2019-03-23 04:52] VITALS: BP 98/59
--- NOTE | 2019-03-23 05:10 | NUR ---
PT RESTED IN INTERVALS DURING SHIFT, NO ACUTE CHANGES OCCURRING OVERNIGHT. PT REMAINS ON 4L TRACH COLLAR, DENIES SOB DURING SHIFT. PT DID NOT REQUIRE SUCTIONING DURING SHIFT, LUNG SOUNDS DRY AND NO COUGH NOTED. PT DENIES N/D/V DURING SHIFT. ALL COMFORT AND SAFETY MEASURES PROVIDED FOR, CALL LIGHT WITHIN REACH, BED IN LOWEST POSITION, WILL CONTINUE TO MONITOR.
[2019-03-23 06:32] LABS: BASOPHIL % 0.2 % (0-2); PLATELET COUNT 147 x10^3mcL (130-400)
[2019-03-23 06:33] LABS: CARBON DIOXIDE 28.4 mmol/L (21-32); CHLORIDE SERUM 110 mmol/L (98-107); CREATININE SERUM 0.9 mg/dL (0.7-1.3); GLUCOSE SERUM 92 mg/dL (74-106); POTASSIUM SERUM 3.8 mmol/L (3.5-5.1); SODIUM SERUM 147 mmol/L (136-145)
[2019-03-23 06:36] LABS: RED CELL DISTRIBUTION WIDTH 19.5 % (11.5-14.5)
--- NOTE | 2019-03-23 09:15 | NUR ---
HEPARIN DC'D ORDERED. LATEST PTT 60.1. STARTED ON ELEQUIS 5 MG PO BID. AT BEDSIDE.
[2019-03-23 09:23] VITALS: BP 94/56
--- NOTE | 2019-03-23 11:39 | NUR ---
TELE # 7 RETURNED TO TELE STATION. NOW MED SURG PT.
[2019-03-23 13:44] VITALS: BP 93/51
--- NOTE | 2019-03-23 15:24 | NUR ---
ALERT AND ORIENTED. SITTING UP IN BED. 02 5L TO TRACH. DOES NOT APPEAR TO BE IN ANY RESP DISTRESS. DENIES ANY PAIN. TELE # 7 PVC'S, APPEARS VERY THIN AND WEAK. USES DOREEN TO TRACH FOR COMMUNICATION. ASSIST W/ ALL NEEDS.HEPARIN INFUSING 1200 UNITS Q 1 HOUR FOR PE. 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 CALL LIGHT WITHIN REACH.
[2019-03-23 17:26] VITALS: BP 110/65
--- NOTE | 2019-03-23 19:19 | NUR ---
PT RECEIVED A/O X4, ABLE TO MAKE NEEDS KNOWN. MED-SURG, PT DENIES ANY CP/PRESSURE. BREATHING IS EVEN AND UNLABORED ON 02 4L BLOW-BY VIA TRACHEOSTOMY STOMA, NO RESP DISTRESS NOTED. PT USES VOICE BOX TO TALK. ABD SOFT AND FLAT, DENIES N/V. VOIDS FREELY, URINAL AT BEDSIDE. GENERALIZED WEAKNESS, ON AIR MATTRESS. OPEN WOUND NOTED TO COCCYX WITH OPTIFOAM IN PLACE, CDI. PT DENIES HAVING ANY PAIN AT THIS TIME. IVF INFUSING WELL TO LFA, SITE WNL. NO ACUTE DISTRESS NOTED. BED IN LOWEST SETTING, SIDE RAILS UP X2, BED ALARM ON, CALL LIGHT WITHIN REACH. WILL CONT TO MONITOR.
--- NOTE | 2019-03-23 19:49 | NUR ---
RESTING COMFORTABLY. PT WILL MOST LIKELY BE GOING HOME TOMORROW. PT IS HAPPY TO GO HOME. DENIED ANY PAIN THIS SHIFT. D5 NS INFUSING 50 CC HOUR. CONTINUES ON LEVAQUIN IV. ASSIST WITH MOST ADL'S. UP WITH PHYSICAL THERAPY TODAY. VSS. CALL LIGHT WITHIN REACH.
[2019-03-23 20:21] VITALS: BP 96/58
--- NOTE | 2019-03-24 00:09 | NUR ---
PT RESTING IN BED, AWAKE AND WATCHING TV. BREATHING IS EVEN AND UNLABORED, NO RESP DISTRESS NOTED. PT DENIES HAVING ANY PAIN AT THIS TIME. URINAL EMPTIED, 100 ML YELLOW URINE NOTED. PT REPOSITIONED. IVF INFUSING WELL, WITE WNL. NO ACUTE DISTRESS NOTED. CALL LIGHT WITHIN REACH. WILL CONT TO MONITOR.
--- NOTE | 2019-03-24 05:11 | NUR ---
RECEIVED CALL FROM DANYELL AT THE [facility]. DANYELL INQUIRING IF PT WILL STILL BE TRANSFERRED TO FACILITY. UPDATED DANYELL THAT PT WILL POSSIBLY BE DC'd TODAY WITH HOME HEALTH.
[2019-03-24 06:12] VITALS: BP 119/76
[2019-03-24 06:35] LABS: BASOPHIL % 0.2 % (0-2); PLATELET COUNT 154 x10^3mcL (130-400)
--- NOTE | 2019-03-24 06:37 | NUR ---
PT SLEPT WELL THROUGHOUT THE EVENING. BREATHING IS EVEN AND UNLABORED ON 02 4L BLOW-BY VIA TRACH STOMA. PT DENIES HAVING ANY PAIN AT THIS TIME. IVF INFUSING WELL TO [facility], SITE WNL. NO ACUTE CHANGES ENCOUNTERED DURING SHIFT. ALL NEEDS ANTICIPATED AND MET. PT COMPLIANT WITH NURSING CARE. CALL LIGHT WITHIN REACH. WILL ENDORSE CARE TO AM NURSE.
[2019-03-24 06:51] LABS: CALCIUM 6.9 mg/dL (8.5-10.1); CARBON DIOXIDE 34.5 mmol/L (21-32); CHLORIDE SERUM 109 mmol/L (98-107); CREATININE SERUM 0.8 mg/dL (0.7-1.3); GLUCOSE SERUM 81 mg/dL (74-106); POTASSIUM SERUM 3.7 mmol/L (3.5-5.1); SODIUM SERUM 147 mmol/L (136-145)
[2019-03-24 06:55] LABS: RED CELL DISTRIBUTION WIDTH 19.6 % (11.5-14.5)
--- NOTE | 2019-03-24 07:20 | NUR ---
RECEIVED PT FROM REGISTRAR ASSISTANT. PT AWAKE, ALERT A/OX4. PT HAS STOMA WITH TRACH ON 5L BLOW BY AT THIS TIME WITH NO RESP DISTRESS NOTED. PT DENIES HEADACHE, CHEST PAIN AT THIS TIME. IV ACCESS LFA CDI INFUSING D5NS AT 50ML/HR. PERIPHERAL PULSES PALPABLE, NO EDEMA NOTED. AT BEDSIDE. PT DENIES ANY ISSUES WITH ELIMINATION AT THIS TIME. SAFETY MEASURES IN PLACE, BED LOW AND LOCKED. CALL LIGHT WITHIN REACH.
--- NOTE | 2019-03-24 08:48 | NUR ---
DUE MEDS ADMINISTERED ORDERED. PT REFUSES CALCITROL AT THIS TIME. AT BEDSIDE. PT WITH NO ACUTE DISTRESS OR DISCOMFORT AT THIS TIME.
[2019-03-24 10:09] VITALS: BP 106/64
--- NOTE | 2019-03-24 12:46 | NUR ---
PT RESTING WITH NO DISCOMFORT NOTED. PT REPORTS HE WANTS TO GO HOME AND WANTS TO BE "UNHOOKED". EDUCATION PROVIDED ON DISCHARGE PROCESS. PT VERBALIZES UNDERSTANDING. DUE MEDS ADMINISTERED ORDERED. SAFETY MAINTAINED.
[2019-03-24] MEDS ORDERED: ELIQUIS5 MG PO (13:57)
[2019-03-24] MEDS ORDERED: LEVAQUIN750 MG PO (13:58)
[2019-03-24 14:45] VITALS: BP 106/64
--- NOTE | 2019-03-24 15:03 | NUR ---
UNABLE TO TAKE DISCHARGE PHOTOS OF PATIENT'S SACRAL/COCCYX AREA. PT SHOWING SIGNS OF DISTRESS WHEN MOVED. SURU RN IN ROOM AT TIME OF PHOTO. OPTIFOAM IN PLACE.
--- NOTE | 2019-03-24 15:43 | NUR ---
COMING TO TAKE PT HOME. WILL GO OVER DISCHARGE PAPERWORK, AND EDUCATION WHEN ARRIVES. NO ACUTE DISTRESS NOTED AT THIS TIME,
--- NOTE | 2019-03-24 17:45 | NUR ---
DISCHARGE INSTRUCTIONS/EDUCATION PROVIDED TO PATIENT AND FAMILY. PRESCRIPTIONS PROVIDED. PT TO FOLLOW UP WITH APPT PROVIDED. IV ACCESS REMOVED WITH CATHETER INTACT. NO BLEEDING, SWELLING NOTED. PT TAKEN BY WHEELCHAIR TO PRIVATE AUTO TO DISCHARGE HOME. SAFETY MAINTAINED.
== END 2019-03-24 17:58 | disposition home health service (06) | DRG 193 ==
LOC: ED 09:23 → DU 03-19 11:59 → MU 03-23 11:41
PROVIDERS: Emergency Medicine; Specialist; ADMIT Internal Medicine
DX: J18.9 Pneumonia, unspecified organism (principal); I26.99 Other pulmonary embolism without acute cor pulmonale; J96.21 Acute and chronic respiratory failure with hypoxia; C78.7 Secondary malignant neoplasm of liver and intrahepatic bile duct; C77.1 Secondary and unspecified malignant neoplasm of intrathoracic lymph nodes; C79.51 Secondary malignant neoplasm of bone; J90 Pleural effusion, not elsewhere classified; C78.02 Secondary malignant neoplasm of left lung; C78.01 Secondary malignant neoplasm of right lung; E44.0 Moderate protein-calorie malnutrition; D68.69 Other thrombophilia; R13.11 Dysphagia, oral phase; C73 Malignant neoplasm of thyroid gland; Z93.0 Tracheostomy status; Z68.26 Body mass index [BMI] 26.0-26.9, adult
CPT/HCPCS: 36600; 97116-GP; C9113; G0378; J1644; J1650; J1940; J1956; J7030; J7042; J7613; J7620; J7644; Q0092; Q9967

== ENCOUNTER 2019-07-23 22:10 | Inpatient (IN) | payer OTHER ==
[~2019-07-23] VITALS: Ht 182.9 cm; Wt 63.9 kg
[~2019-07-23 22:10] MED LIST: AVELOX400 MG; B12; CALCITRIOL0.25 MCG; CLINDAMYCI75 MG/5 ML; ELIQUIS5 MG PO; EMERGEN-C 500500 MG; LEVAQUIN750 MG IV; LEVAQUIN750 MG PO; LEVOFLOXACIN750 M1; NORCO1 TA2 PO; ROB1 PO; SYNTHROID0.175 MG PO
[2019-07-23 22:35] VITALS: BP 91/48
[2019-07-23 22:39] VITALS: Ht 182.9 cm; Wt 63.9 kg
[2019-07-23 23:01] LABS: CALCIUM 9.2 mg/dL (8.5-10.1); CARBON DIOXIDE 32.6 mmol/L (21-32); CHLORIDE SERUM 106 mmol/L (98-107); CREATININE SERUM 1.4 mg/dL (0.7-1.3); GLUCOSE SERUM 110 mg/dL (74-106); PLATELET COUNT 187 x10^3mcL (130-400); POTASSIUM SERUM 4.2 mmol/L (3.5-5.1); SODIUM SERUM 145 mmol/L (136-145)
[2019-07-23 23:04] LABS: BASOPHIL % 0 % (0-2); RED CELL DISTRIBUTION WIDTH 16.3 % (11.5-14.5)
[2019-07-23 23:05] VITALS: BP 85/49
[2019-07-23 23:06] LABS: ALKALINE PHOSPHATASE 71 U/L (46-116); ALT/SGPT 16 U/L (16-63); AST/SGOT 17 U/L (15-37); BILIRUBIN TOTAL 0.63 mg/dL (0.20-1.00)
[2019-07-23 23:11] LABS: ALBUMIN 2.8 g/dL (3.4-5.0); TOTAL PROTEIN, SERUM 5.8 g/dL (6.4-8.2)
[2019-07-23 23:17] LABS: CK-MB 1.4 ng/mL (0-3.6)
[2019-07-23 23:24] LABS: UA SPECIFIC GRAVITY >=1.030 (1.005-1.035); microscopic required? YES; urine erythrocyte 3+ (NEGATIVE)
[2019-07-24] VITALS (15 sets, daily range): BP systolic 90–121; BP diastolic 51–79
[2019-07-24 06:00] LABS: PLATELET COUNT 195 x10^3mcL (130-400)
[2019-07-24 06:05] LABS: CALCIUM 8.8 mg/dL (8.5-10.1); CARBON DIOXIDE 30.6 mmol/L (21-32); CHLORIDE SERUM 106 mmol/L (98-107); CREATININE SERUM 1.1 mg/dL (0.7-1.3); GLUCOSE SERUM 113 mg/dL (74-106); MAGNESIUM 1.1 mg/dL (1.8-2.4); PHOSPHOROUS 2.8 mg/dL (2.5-4.9); POTASSIUM SERUM 4.4 mmol/L (3.5-5.1); SODIUM SERUM 144 mmol/L (136-145)
[2019-07-24 06:24] LABS: RED CELL DISTRIBUTION WIDTH 16.3 % (11.5-14.5)
[2019-07-24 13:17] LABS: SEGMENTED NEUTROPHILS 94 % (37-75)
[2019-07-24 14:25] LABS: rbc morphology (normal/abnorm) ABNORMAL (NORMAL)
[2019-07-25] VITALS: BP 107/68
[2019-07-25 04:00] VITALS: BP 98/62
[2019-07-25 05:44] LABS: CALCIUM 8.1 mg/dL (8.5-10.1); CARBON DIOXIDE 32.4 mmol/L (21-32); CHLORIDE SERUM 108 mmol/L (98-107); CREATININE SERUM 0.9 mg/dL (0.7-1.3); GLUCOSE SERUM 81 mg/dL (74-106); MAGNESIUM 1.1 mg/dL (1.8-2.4); PHOSPHOROUS 2.2 mg/dL (2.5-4.9); POTASSIUM SERUM 4.1 mmol/L (3.5-5.1); SODIUM SERUM 145 mmol/L (136-145)
[2019-07-25 05:48] LABS: BASOPHIL % 0.3 % (0-2); PLATELET COUNT 173 x10^3mcL (130-400); RED CELL DISTRIBUTION WIDTH 16.2 % (11.5-14.5)
[2019-07-25 07:30] VITALS: BP 116/65
[2019-07-25 11:15] VITALS: BP 118/55
[2019-07-25 16:55] VITALS: BP 102/56
[2019-07-25 20:12] VITALS: BP 103/56
[2019-07-26 06:10] VITALS: BP 96/57
[2019-07-26 07:10] LABS: BASOPHIL % 0.3 % (0-2); PLATELET COUNT 175 x10^3mcL (130-400)
[2019-07-26 07:32] LABS: RED CELL DISTRIBUTION WIDTH 16.8 % (11.5-14.5)
[2019-07-26 08:21] VITALS: BP 111/58
[2019-07-26 08:23] VITALS: BP 122/67
[2019-07-26 09:04] LABS: CALCIUM 8.1 mg/dL (8.5-10.1); CARBON DIOXIDE 30.4 mmol/L (21-32); CHLORIDE SERUM 107 mmol/L (98-107); CREATININE SERUM 0.8 mg/dL (0.7-1.3); GLUCOSE SERUM 79 mg/dL (74-106); MAGNESIUM 1.6 mg/dL (1.8-2.4); PHOSPHOROUS 2.7 mg/dL (2.5-4.9); SODIUM SERUM 144 mmol/L (136-145)
[2019-07-26 11:59] VITALS: BP 117/61
[2019-07-26 16:28] VITALS: BP 136/69
[2019-07-26 21:31] VITALS: BP 119/59
[2019-07-27] VITALS (12 sets, daily range): BP systolic 88–124; BP diastolic 45–85
[2019-07-27 07:52] LABS: BASOPHIL % 0.2 % (0-2); PLATELET COUNT 217 x10^3mcL (130-400)
[2019-07-27 08:26] LABS: CARBON DIOXIDE 32.6 mmol/L (21-32); CHLORIDE SERUM 104 mmol/L (98-107); GLUCOSE SERUM 82 mg/dL (74-106); MAGNESIUM 1.3 mg/dL (1.8-2.4); PHOSPHOROUS 2.7 mg/dL (2.5-4.9); POTASSIUM SERUM 3.6 mmol/L (3.5-5.1); SODIUM SERUM 143 mmol/L (136-145)
[2019-07-27 09:16] LABS: RED CELL DISTRIBUTION WIDTH 16.6 % (11.5-14.5)
[2019-07-27 18:19] LABS: PLATELET COUNT 198 x10^3mcL (130-400)
[2019-07-27 18:27] LABS: RED CELL DISTRIBUTION WIDTH 16.7 % (11.5-14.5)
[2019-07-27 18:40] LABS: CALCIUM 7.4 mg/dL (8.5-10.1); CHLORIDE SERUM 105 mmol/L (98-107); GLUCOSE SERUM 132 mg/dL (74-106); MAGNESIUM 1.3 mg/dL (1.8-2.4); PHOSPHOROUS 3.3 mg/dL (2.5-4.9); POTASSIUM SERUM 3.9 mmol/L (3.5-5.1); SODIUM SERUM 145 mmol/L (136-145)
[2019-07-27 18:43] LABS: BAND NEUTROPHIL 6 % (0-10); BASOPHIL 0 % (0-2); MONOCYTE 5 % (0-7); SEGMENTED NEUTROPHILS 80 % (37-75)
[2019-07-27 18:45] LABS: PLATELET MORPHOLOGY PLATELETS NORMAL; rbc morphology (normal/abnorm) NORMAL (NORMAL)
[2019-07-28] VITALS (11 sets, daily range): BP systolic 88–138; BP diastolic 49–95
[2019-07-28 04:30] LABS: PLATELET COUNT 167 x10^3mcL (130-400)
[2019-07-28 04:38] LABS: BASOPHIL % 0 % (0-2); RED CELL DISTRIBUTION WIDTH 16.2 % (11.5-14.5)
[2019-07-28 04:51] LABS: CARBON DIOXIDE 28.3 mmol/L (21-32); CHLORIDE SERUM 105 mmol/L (98-107); CREATININE SERUM 0.9 mg/dL (0.7-1.3); GLUCOSE SERUM 115 mg/dL (74-106); MAGNESIUM 1.2 mg/dL (1.8-2.4); PHOSPHOROUS 1.9 mg/dL (2.5-4.9); POTASSIUM SERUM 3.7 mmol/L (3.5-5.1); SODIUM SERUM 142 mmol/L (136-145)
== END 2019-07-28 18:18 | disposition short-term general hospital (02) | DRG 871 ==
LOC: ED 22:10 → DU 23:22 → IC 23:22 → DU 07-25 15:06 → MU 07-27 10:45 → IC 07-27 17:25
PROVIDERS: Emergency Medicine; Internal Medicine; ADMIT Internal Medicine
DX: A41.9 Sepsis, unspecified organism (principal); R65.21 Severe sepsis with septic shock; J18.9 Pneumonia, unspecified organism; J96.00 Acute respiratory failure, unspecified whether with hypoxia or hypercapnia; N17.0 Acute kidney failure with tubular necrosis; E43 Unspecified severe protein-calorie malnutrition; J96.22 Acute and chronic respiratory failure with hypercapnia; J96.21 Acute and chronic respiratory failure with hypoxia; E87.2 Acidosis; C78.7 Secondary malignant neoplasm of liver and intrahepatic bile duct; C78.02 Secondary malignant neoplasm of left lung; C78.01 Secondary malignant neoplasm of right lung; Z68.1 Body mass index [BMI] 19.9 or less, adult; D64.9 Anemia, unspecified; Z93.0 Tracheostomy status; Z85.850 Personal history of malignant neoplasm of thyroid
CPT/HCPCS: 36600; 82962; 83880; 87046; 87046-59; 87804; 97116-GP; A4628; G0378; J1644; J1650; J1720; J1940; J1956; J2920; J3370; J3475; J3490; J7030; J7040; J7050; J7620; Q0092; Q9967